=== PATIENT | male | born 1990 | race Asian ===

== ENCOUNTER 2023-02-14 16:02 | Emergency (ER) | payer BC ==
[~2023-02-14] VITALS: Ht 185.4 cm; Wt 79.4 kg
[2023-02-14 16:23] VITALS: BP_SYST 121; PULSE 74; RESP 19; TEMP 98; O2SAT 100
[2023-02-14] MEDS ORDERED: NACL 0.9% 1,000 ML IV ONE (18:30)
[2023-02-14] MEDS ORDERED: ONDANSETRON HCL 4 MG/2 ML VIAL IVP ONE (18:30)
[2023-02-14 19:33] LABS: BASOPHILS % (AUTO) 0.2 % (0.0-2.0); EOSINOPHILS % (AUTO) 0.2 % (0.0-4.0); HEMATOCRIT 52.7 % (36-54); HEMOGLOBIN 16.8 g/dL (14.0-18.0); LYMPHOCYTES # (AUTO) 0.4 K/uL (1.0-5.5); LYMPHOCYTES % (AUTO) 3.3 % (20.5-51.5); MEAN CORPUSCULAR HEMOGLOBIN 26 pg (27-31); MEAN CORPUSCULAR HGB CONC 32 % (32-36); MEAN CORPUSCULAR VOLUME 82 fL (79.0-98.0); MONOCYTES # (AUTO) 0.4 K/uL (0.0-1.0); MONOCYTES % (AUTO) 2.9 % (1.7-9.3); NEUTROPHILS % (AUTO) 93.4 % (40.0-70.0); PLATELET COUNT (AUTO) 234 K/uL (130-430); RED BLOOD CELL COUNT(AUTO) 6.39 MIL/uL (4.2-6.2); RED CELL DISTRIBUTION WIDTH 14.6 % (9.0-15.0); WHITE BLOOD COUNT (AUTO) 12.9 K/uL (4.8-10.8)
[2023-02-14 19:43] LABS: CREATININE 0.91 mg/dL (0.55-1.30); POTASSIUM 4.3 mmol/L (3.5-5.1)
[2023-02-14 19:49] LABS: ALBUMIN 4.2 g/dL (3.4-4.8); TOTAL BILIRUBIN 0.5 mg/dL (0.0-1.0)
[2023-02-14] MEDS ORDERED: METOCLOPRAMIDE HCL 10 MG/2 ML VIAL IVP ONE (20:00)
[2023-02-14] MEDS ORDERED: DIPHENHYDRAMINE INJ 50 MG/ML VIAL IVP ONE (21:00)
[2023-02-14] MEDS ORDERED: HALOPERIDOL LACTATE 5 MG/ML VIAL IVP ONE (21:00)
[2023-02-14] MEDS ORDERED: ONDA-8 TL (21:39)
[2023-02-14] MEDS ORDERED: FAMO40TA71 PO (21:39)
[2023-02-14] MEDS ORDERED: LORazepam 2 MG/ML VIAL IVP ONE (22:00)
[2023-02-14 23:57] VITALS: BP_SYST 125; PULSE 71; RESP 16; TEMP 98; O2SAT 100
== END 2023-02-14 23:57 | disposition home or self-care (01) ==
LOC: SED 16:02
DX: K29.70 Gastritis, unspecified, without bleeding (principal); R11.10 Vomiting, unspecified; R10.13 Epigastric pain; R50.9 Fever, unspecified; F17.200 Nicotine dependence, unspecified, uncomplicated; F12.90 Cannabis use, unspecified, uncomplicated; Z79.899 Other long term (current) drug therapy
CPT/HCPCS: 99285; 74177; 96374; 96375; 96361; 80053; 83690; 85025; 36415; 76376; J1200; J1630; J2060; J2765; J2405; Q9967; J7030